=== PATIENT | female | born 1990 | race African-American/Black ===

== ENCOUNTER 2016-09-25 10:23 | Emergency (ER) | payer BC ==
--- NOTE | ~2016-09-25 | CR132 ---
[facility] A Service of [facility] & [facility] RADIOLOGY TEXT RESULTS PATIENT: JOSE DE JESUS BURKS LOCATION: CFTX : [birth year] UNIT #: [id number] AGE: [address]: Marjorie Arora APRN SEX: F ORDER DR: [id number] [facility] [address] [place], [place] [address] [id number] E MR#: [id number] Acc #: [id number] NAME: JOSE DE JESUS BURKS : 1990 SEX: F STUDY DATE/TIME: 09/25/2016 11:15 UNIT: CFTX ROOM: STUDY DESCRIPTION: CR Forearm 2 View Lt Attending Physician: Marjorie Arora A.P.R.N. Ordering Physician: Ed Doctor [id number] [facility] Primary Care Physician: Primary Care Physician No MEDICAL IMAGING REPORT This report is preliminary unless electronic signature is present EXAM Left forearm, 09/25/2016 HISTORY 26-year-old female with laceration to left forearm/hand. Accidentally punched through window with laceration by glass. Possible foreign body. COMPARISON None FINDINGS Two views of the left forearm demonstrate the bandage along the ulnar aspect. Both radius and ulna are intact. I see no soft tissue foreign body. IMPRESSION Soft tissue trauma. Medial or ulnar aspect of the left forearm. No osseous abnormality. No visualized soft tissue foreign body. Dictated by... Gildardo Woodall M.D. THIS IS AN ELECTRONICALLY VERIFIED REPORT Gildardo Woodall M.D. at 10/02/2016 7:11 AM Scar TD: 09/25/2016 14:47 JOB #: [id number] MEDICAL IMAGING REPORT Page 1 of 1 COPY
--- NOTE | ~2016-09-25 | CR141 ---
[facility] A Service of [facility] & [facility] RADIOLOGY TEXT RESULTS PATIENT: JOSE DE JESUS BURKS LOCATION: CFTX : 86 UNIT #: [id number] AGE: [address]: Marjorie Arora APRN SEX: F ORDER DR: [id number] [facility] [address] [place], [place] [address] [id number] E MR#: [id number] Acc #: [id number] NAME: JOSE DE JESUS BURKS : 1990 SEX: F STUDY DATE/TIME: 09/25/2016 11:15 UNIT: CFTX ROOM: STUDY DESCRIPTION: CR Hand Min 3 Views Lt Attending Physician: Marjorie Arora A.P.R.N. Ordering Physician: Ed Curry Cano M.D. Primary Care Physician: No Primary Care Physician MEDICAL IMAGING REPORT This report is preliminary unless electronic signature is present EXAM Left hand, 09/25/2016, [facility]. HISTORY 26-year-old female with laceration. Left hand and forearm punched through laceration, rule out foreign body. FINDINGS Three views of the left hand demonstrate soft tissue trauma adjacent to the fifth metacarpal. There is no osseous abnormality. I see no radiopaque foreign body. IMPRESSION Soft tissue trauma medial or ulnar aspect of left hand and forearm. No osseous injury noted. No visualized soft tissue foreign body. Dictated by... Gildardo Woodall M.D. THIS IS AN ELECTRONICALLY VERIFIED REPORT Gildardo Woodall M.D. at 10/02/2016 7:11 AM ALICIA/gurjit TD: 09/25/2016 14:53 JOB #: [id number] MEDICAL IMAGING REPORT Page 1 of 1 COPY
== END 2016-09-25 14:53 | disposition home or self-care (01) ==
LOC: CFTX 10:23 → CED 10:23 → CFTX 12:55
DX: S51.812A Laceration without foreign body of left forearm, initial encounter (principal); S61.412A Laceration without foreign body of left hand, initial encounter; Z23 Encounter for immunization; X50.9XXA Other and unspecified overexertion or strenuous movements or postures, initial encounter; Y92.009 Unspecified place in unspecified non-institutional (private) residence as the place of occurrence of the external cause
CPT/HCPCS: 12002; 73090; 73130; 90471; 90715; 99283